=== PATIENT | male | born 1985 | race Caucasian/White ===

== ENCOUNTER 2023-08-02 13:33 | Outpatient (CLI) | payer MEDICAID | END 2023-08-02 23:59 | disposition critical access hospital (66) | LOC: EMS 13:33 | DX: R11.2 Nausea with vomiting, unspecified (principal); R07.9 Chest pain, unspecified | CPT/HCPCS: A0425; A0429; A0999 ==

== ENCOUNTER 2023-08-02 14:03 | Emergency (ER) | payer MEDICAID ==
--- NOTE | 2023-08-02 14:29 | ED Physician Documentation ---
PD HPI CHEST PAIN - Stated complaint Stated Complaint: CP - Chief complaint Chief Complaint: Cardiac - History obtained from History obtained from: Patient, EMS - Additional information Additional information: 37-year-old gentleman with history of alcoholism quit drinking a few days ago and was vomiting a lot. He developed some pain with vomiting in his chest which is now better but when he was in the screening process at [facility] because he had chest pain he was sent here. He is not nauseous anymore either. PD PAST MEDICAL HISTORY - Past Medical History Past Medical History: Yes Other Past Medical History: ETOH withdrawals - Past Surgical History Past Surgical History: No - Allergies Allergies/Adverse Reactions: Allergies Allergy/AdvReac Type Severity Reaction Status Date / Time No Known Drug Allergies Allergy Verified 08/02/23 14:17 - Social History Does the pt smoke?: Yes Smoking Status: Light tobacco smoker PD ED PE NORMAL - Vitals Vital signs reviewed: Yes - General General: Alert and oriented X 3, Other (Somewhat disheveled but well-appearing) - HEENT HEENT: PERRL, EOMI - Neck Neck: Supple, no meningeal sign, No bony TTP, No bruit - Cardiac Cardiac: RRR, No murmur - Respiratory Respiratory: No respiratory distress, Clear bilaterally - Abdomen Abdomen: Non tender - Extremities Extremities: No edema, No calf tenderness / cord - Neuro Neuro: Alert and oriented X 3, Normal speech Results - Vitals Vitals: Vital Signs - 24 hr 08/02/23 08/02/23 14:14 14:49 Temperature 36.5 C Heart Rate 111 H 97 Respiratory 18 16 Rate Blood Pressure 108/72 110/75 O2 Saturation 99 100 Oxygen O2 Source Room air - EKG (time done) 1441 EKG releavant findings:: EKG personally interpreted by author of this note. Relevant findings are: Rate: Rate (enter#) (97) Rhythm: NSR [place]: Normal Intervals: Normal UT QRS: Normal Ischemia: Normal ST segments - Rads (name of study) 1v cxr Relevant Findings:: Final report received, EMP independent interpretation of test PD Medical Decision Making - ED course ED course: 37-year-old from [facility] with improving/improved chest pain from vomiting. EKG and chest x-ray unremarkable. He declined any further needs. Departure - Departure Disposition: 01 Home, Self Care Clinical Impression: Atypical chest pain Condition: Good Record reviewed to determine appropriate education?: Yes Instructions: ED Chest Pain Atypical Unkn Cause Comments: No concerning findings in history or physical or workup to demonstrate that this is a dangerous cause of his improved chest pain. Call your doctor to arrange a follow-up appointment, make the next available appointment. In the interim, return anytime if worse or if new symptoms develop. Forms: PCP List
--- NOTE | 2023-08-02 15:20 | XRAY Report ---
PROCEDURE: Chest 1V INDICATIONS: chest pain TECHNIQUE: One view of the chest was acquired. COMPARISON: None. FINDINGS: Surgical changes and devices: None. Lungs and pleura: No pleural effusions or pneumothorax. Lungs are abnormal with pulmonary hyperexpa nsion and a subtle pattern of bilateral apical mild airspace disease. Mediastinum: Mediastinal contours appear normal. Heart size is normal. Bones and chest wall: No suspicious bony lesions. Overlying soft tissues appear unremarkable. IMPRESSION: Prominent pulmonary hyperexpansion with bilateral apical mild airspace disease. Consider COPD and gra nulomatous disease at the upper lobes bilaterally. Reviewed by: Migel Schwartz MD on 08/02/2023 3:18 PM PST Approved by: Migel Schwartz MD on 08/02/2023 3:18 PM PST Station ID: [id number]
[2023-08-02 16:08] VITALS: BP 103/78; O2SAT 97
== END 2023-08-02 16:57 | disposition home or self-care (01) ==
LOC: EDBD → ED 14:03
DX: R07.89 Other chest pain (principal); Z72.0 Tobacco use
CPT/HCPCS: 93005; 99283